=== PATIENT | male | born 1970 | race Two or more races ===

== ENCOUNTER 2020-03-20 14:44 | Inpatient (IN) | payer MEDICAID, OTHER ==
[~2020-03-20] VITALS: Ht 170.2 cm; Wt 80.7 kg
[2020-03-20] MEDS ORDERED: SODIUM CHLORIDE 0.9% 1,000 ML IV ONE (16:00)
[2020-03-20 16:21] LABS: Urine Bacteria NONE SEEN /hpf (None Seen); Urine Blood Negative /uL (Negative); Urine Mucus FEW (None Seen); Urine Specific Gravity 1.026 (1.001-1.035); Urine WBC 2 /hpf (0 - 3)
[2020-03-20 16:29] LABS: Albumin 3.8 g/dL (3.4-5.0); Calcium 8.7 mg/dL (8.5-10.1); Potassium 3.3 mmol/L (3.5-5.1)
[2020-03-20 16:30] LABS: Amphetamine Screen, Urine POSITIVE (NEGATIVE); Barbiturate Scree,Urine NEGATIVE (NEGATIVE); Benzodiazephine Screen, Urine NEGATIVE (NEGATIVE); Cannabinoid Screen, Urine POSITIVE (NEGATIVE); Cocaine Screen, Urine NEGATIVE (NEGATIVE); Opiate Scree,Urine NEGATIVE (NEGATIVE); Phencyclidine Screen, Urine NEGATIVE (NEGATIVE)
[2020-03-20 16:31] LABS: BUN/Creatinine Ratio 19.8
[2020-03-20 16:33] LABS: Bilirubin, Total 0.5 mg/dL (0.2-1.0); Total Protein 7.3 g/dL (6.4-8.2)
[2020-03-20 16:35] LABS: Amylase 45 U/L (25-115); Lipase 88 U/L (73-393)
[2020-03-20] MEDS ORDERED: POTASSIUM CHL 20 Meq TABLET PO ONE (16:45)
[2020-03-20] MEDS ORDERED: PANTOPRAZOLE 40 MG/10 ML VIAL INJ IV ONE (17:00)
[2020-03-20] MEDS ORDERED: cefTRIAXone 1GM/50ML D5W 50 ML IV ONE (17:15)
[2020-03-20] MEDS ORDERED: ONDANSETRON HCL 4 MG/2 ML VIAL IV ONE (17:15)
[2020-03-20] MEDS ORDERED: metroNIDAZOLE 500MG/100ML 100 ML IV ONE (17:15)
[2020-03-20] MEDS ORDERED: MORPHINE SULF INJ 2 MG/ML SYRINGE 1ML IV ONE (17:15)
[2020-03-20 18:06] LABS: Basophils # (auto) 0 10 ^3/uL (0-0.2); Basophils % (auto) 0.1 % (0.0-2.0); Eosinophils # (auto) 0.4 10 ^3/uL (0-0.8); Eosinophils % (auto) 4.6 % (0.0-7.0); Hemoglobin 15.3 g/dL (13.5-17.5); Lymphocytes # (auto) 1.6 10 ^3/uL (0.4-5.4); Mean Corpuscular Hemoglobin 30.8 pg (28.0-32.0); Mean Corpuscular Hgb Conc. 34.1 g/dL (32.0-36.0); Mean Corpuscular Volume 90.3 fL (80.0-100.0); Monocytes # (auto) 0.5 10 ^3/uL (0-1.3); Monocytes % (auto) 6.4 % (0.0-12.0); Neutrophils # (auto) 5.9 10 ^3/uL (1.6-8.6); Neutrophils % (auto) 69.9 % (37.0-80.0); Platelet Count (auto) 198 10^3/uL (140-450); Red Blood Cells 4.98 10^6/uL (4.5-5.90); Red Cell Distribution Width 12.9 % (11.8-14.3); White Blood Cell 8.5 10^3/uL (4.4-10.8)
[2020-03-20 18:20] LABS: INR 0.95 (0.9-1.15); Partial Thromboplastin Time 26.5 sec (23.64-32.05)
[2020-03-20] MEDS ORDERED: PANTOPRAZOLE 40 MG TAB PO ONE (18:30)
[2020-03-20] MEDS ORDERED: POTASSIUM EFFERVESENT TAB 25 MEQ PO ONE (18:30)
[2020-03-20] MEDS ORDERED: MORPHINE SULF INJ 2 MG/ML SYRINGE 1ML IV PRN ×2 (19:00)
[2020-03-20] MEDS ORDERED: PROMETHAZINE HCL 25 MG/ML 1ML IV PRN (19:00)
[2020-03-20 19:50] VITALS: BP 109/68
--- NOTE | 2020-03-20 20:00 | NUR ---
Telemetry admit from ER TORRESJULIETA LINARES admitted to Telemetry unit, no SBAR or report received from ER. Patient oriented to DARINEL DE LOS SANTOS RN primary RN, MST unit, room 280, bed A, and unit policies regarding patient care and visiting hours. Patient weighed by bed scale and encouraged to call if they need something. All questions and concerns addressed, patient verbalized understanding. Note: Patient on room air with even and unlabored respirations, no S/S of distress or SOB. Patient able to ambulate independently, bed in lowest locked position, side rails up x2 and call light within reach. Will continue to monitor Q1hr PRN.
[2020-03-20] MEDS: FAMOTIDINE (10MG/ML) 2ML VL IV SCH (21:14)
[2020-03-20] MEDS ORDERED: ALBUAER3 IN (22:07)
[2020-03-20 22:18] VITALS: BP 109/68
[2020-03-20] MEDS: SODIUM CHLORIDE 0.9% 1,000 ML IV SCH (22:22)
[2020-03-20] MEDS: metroNIDAZOLE 500MG/100ML 100 ML IV SCH (22:22)
[2020-03-21] MEDS: SODIUM CHLORIDE 0.9% 1,000 ML IV SCH ×2 (04:50→20:29)
[2020-03-21 05:00] VITALS: BP 104/70
[2020-03-21] MEDS: metroNIDAZOLE 500MG/100ML 100 ML IV SCH ×3 (06:24→21:55)
[2020-03-21] MEDS: FAMOTIDINE (10MG/ML) 2ML VL IV SCH ×2 (06:49→20:26)
--- NOTE | 2020-03-21 07:30 | NUR ---
Opening Shift Note Assumed care of patient, awake and alert. No S/S of distress/SOB or pain. Instructed on POC and to call for assist PRN, will continue to monitor for changes Q1hr and PRN.
[2020-03-21 09:00] VITALS: BP 140/68
--- NOTE | 2020-03-21 09:40 | NUR ---
Spoke with Dr. Jesus Manuel Grove re surgical consult. COVID test ordered. Dr. Grove states he will schedule surgery after results of test are received.
--- NOTE | 2020-03-21 10:15 | NUR ---
COVID specimen collected and taken to Lab.
[2020-03-21 12:30] VITALS: BP 119/71
--- NOTE | 2020-03-21 13:22 | NUR ---
Dr. Jesus Manuel Grove in to see patient for surgery consult.
--- NOTE | 2020-03-21 14:36 | NUR ---
Page placed to Dr. Jesus Manuel Grove to inform hip of negative COVID test.
[2020-03-21] MEDS ORDERED: SUCCINYLCHOLINE CHLORIDE 20 MG/ML 10ML VIAL IV ONE (16:48)
[2020-03-21] MEDS ORDERED: LIDOCAINE 2% (LOCAL ANESTH.) PF 5ml SDV ONE (16:50)
[2020-03-21] MEDS ORDERED: DexAMETHasone SOD PHOS 10MG/1ML VIAL INJ ONE (16:50)
[2020-03-21] MEDS ORDERED: PROPOFOL 10 MG/ML 20 ML IV ONE (16:50)
[2020-03-21] MEDS ORDERED: ONDANSETRON HCL 4 MG/2 ML VIAL ONE (16:50)
[2020-03-21] MEDS ORDERED: KETOROLAC TROMETH 60MG/2ML VIAL ONE (16:50)
[2020-03-21] MEDS ORDERED: ROCURONIUM 10MG/ML 10ML VIAL IV ONE (16:51)
[2020-03-21] MEDS ORDERED: MIDAZOLAM HCL 1MG/1ML-2 ML VIAL ONE (16:58)
[2020-03-21] MEDS ORDERED: BUPIVACAINE W/ EPINEPH 0.25% INJ 50ML MDV ONE (16:59)
[2020-03-21] MEDS ORDERED: fentaNYL CITRATE 100 MCG/2 ML VL ONE (16:59)
[2020-03-21] MEDS ORDERED: BUPIVACAINE 0.25% INJ 50ML VIAL ONE (16:59)
[2020-03-21] MEDS ORDERED: BUPIVACAINE HCL 50 ML ONE (16:59)
[2020-03-21 17:00] VITALS: BP 128/83
--- NOTE | 2020-03-21 17:15 | NUR ---
Patient taken to pre-op via bed. Consents and surgical checklist in chart. Report given to pre-op RN.
[2020-03-21] MEDS ORDERED: ceFAZolin 1GM/50ML 50 ML IV ONE (17:23)
[2020-03-21] MEDS ORDERED: GLYCOPYRROLATE 0.2 MG/ML 1ML VIAL ONE (17:56)
[2020-03-21] MEDS ORDERED: NEOSTIGMINE 1 MG/ML INJ (10mg/10ML VIAL) ONE (17:56)
[2020-03-21] MEDS ORDERED: HYDROmorphone HCL 2 MG/ML VL ONE (18:40)
[2020-03-21] MEDS: HYDROmorphone HCL 2 MG/ML VL IV PRN ×2 (18:44→19:00)
[2020-03-21] MEDS ORDERED: METOCLOPRAMIDE HCL 5MG/ml INJ 2ml VIAL IV PRN (18:45)
[2020-03-21] MEDS ORDERED: HYDROmorphone HCL 2 MG/ML VL IV PRN (18:45)
[2020-03-21] MEDS ORDERED: LABETALOL HCL 5 MG/ML 4ML SYRINGE IV PRN (18:45)
[2020-03-21] MEDS ORDERED: ePHEDrine SULFATE 50 MG/ML AMP IV PRN (18:45)
[2020-03-21] MEDS ORDERED: NALOXONE HCL 0.4 MG/ML VIAL IV PRN (18:45)
--- NOTE | 2020-03-21 19:30 | NUR ---
Patient back on unit from surgery. Has 3 small midline incisions with abdominal binder on. He currently is on 2L C for comfort. Was medicated prior to coming up and has no complaints of pain currently. Will continue to monitor.
[2020-03-21] MEDS: cefTRIAXone 1GM/50ML D5W 50 ML IV SCH (19:49)
[2020-03-21 22:39] VITALS: BP 100/66
[2020-03-22] MEDS: SODIUM CHLORIDE 0.9% 1,000 ML IV SCH ×3 (01:00→22:13)
[2020-03-22 05:04] VITALS: BP 110/67
[2020-03-22] MEDS: metroNIDAZOLE 500MG/100ML 100 ML IV SCH ×3 (06:07→22:12)
[2020-03-22 06:11] LABS: Basophils # (auto) 0 10 ^3/uL (0-0.2); Eosinophils # (auto) 0 10 ^3/uL (0-0.8); Hematocrit 43.5 % (41.0-53.0); Hemoglobin 14.8 g/dL (13.5-17.5); Lymphocytes # (auto) 0.3 10 ^3/uL (0.4-5.4); Lymphocytes % (auto) 5.3 % (10.0-50.0); Mean Corpuscular Hemoglobin 30.7 pg (28.0-32.0); Mean Corpuscular Hgb Conc. 34.1 g/dL (32.0-36.0); Mean Corpuscular Volume 89.9 fL (80.0-100.0); Monocytes # (auto) 0 10 ^3/uL (0-1.3); Monocytes % (auto) 0.6 % (0.0-12.0); Neutrophils # (auto) 5.7 10 ^3/uL (1.6-8.6); Neutrophils % (auto) 94.1 % (37.0-80.0); Nucleated Red Blood Cells % 0.2 %; Platelet Count (auto) 183 10^3/uL (140-450); Red Blood Cells 4.83 10^6/uL (4.5-5.90); Red Cell Distribution Width 12.9 % (11.8-14.3); White Blood Cell 6.1 10^3/uL (4.4-10.8)
[2020-03-22 06:28] LABS: Potassium 4.1 mmol/L (3.5-5.1)
[2020-03-22 06:35] LABS: Albumin 3.2 g/dL (3.4-5.0); Bilirubin, Total 0.4 mg/dL (0.2-1.0); Calcium 8.2 mg/dL (8.5-10.1); Total Protein 6.5 g/dL (6.4-8.2)
[2020-03-22] MEDS: FAMOTIDINE (10MG/ML) 2ML VL IV SCH ×2 (06:35→17:41)
--- NOTE | 2020-03-22 07:30 | NUR ---
Opening Shift Note Assumed care of patient, awake and alert. No S/S of distress/SOB or pain. Instructed on POC and to call for assist PRN, will continue to monitor for changes Q1hr and PRN. Patient has three small dressing to abdomen, abdominal binder in place.
[2020-03-22 08:40] VITALS: BP 106/57
[2020-03-22] MEDS: cefTRIAXone 1GM/50ML D5W 50 ML IV SCH (10:08)
[2020-03-22 12:31] VITALS: BP 112/78
--- NOTE | 2020-03-22 15:01 | NUR ---
Dr. Stern in to see patient as hospitalist.
--- NOTE | 2020-03-22 15:13 | NUR ---
Patient ambulates in [facility], wears face mask.
[2020-03-22 16:39] VITALS: BP 119/74
[2020-03-22 22:00] VITALS: BP 118/54
[2020-03-23 05:00] VITALS: BP 119/83
[2020-03-23] MEDS: metroNIDAZOLE 500MG/100ML 100 ML IV SCH ×3 (05:45→22:04)
[2020-03-23 06:42] LABS: Basophils # (auto) 0 10 ^3/uL (0-0.2); Basophils % (auto) 0.3 % (0.0-2.0); Eosinophils # (auto) 0.1 10 ^3/uL (0-0.8); Eosinophils % (auto) 0.7 % (0.0-7.0); Hematocrit 39.8 % (41.0-53.0); Hemoglobin 13.7 g/dL (13.5-17.5); Lymphocytes % (auto) 25.5 % (10.0-50.0); Mean Corpuscular Hemoglobin 31.3 pg (28.0-32.0); Mean Corpuscular Hgb Conc. 34.5 g/dL (32.0-36.0); Mean Corpuscular Volume 90.6 fL (80.0-100.0); Monocytes # (auto) 0.4 10 ^3/uL (0-1.3); Monocytes % (auto) 4.8 % (0.0-12.0); Neutrophils # (auto) 5.5 10 ^3/uL (1.6-8.6); Neutrophils % (auto) 68.7 % (37.0-80.0); Platelet Count (auto) 175 10^3/uL (140-450); Red Blood Cells 4.39 10^6/uL (4.5-5.90); Red Cell Distribution Width 12.8 % (11.8-14.3)
[2020-03-23] MEDS: FAMOTIDINE (10MG/ML) 2ML VL IV SCH ×2 (06:44→18:13)
[2020-03-23 06:57] LABS: Calcium 8.1 mg/dL (8.5-10.1); Potassium 3.6 mmol/L (3.5-5.1)
[2020-03-23 06:59] LABS: BUN/Creatinine Ratio 14.3
[2020-03-23] MEDS: SODIUM CHLORIDE 0.9% 1,000 ML IV SCH ×2 (07:30→17:33)
--- NOTE | 2020-03-23 07:35 | NUR ---
Opening Shift Note Assumed care of patient, awake and alert. No S/S of distress/SOB or pain. Updated on POC and instructed to call for assistance PRN. Bed locked in lowest position, side rails up x2, call light within reach. Will continue to monitor for changes Q1hr and PRN.
[2020-03-23 09:00] VITALS: BP 122/75
[2020-03-23] MEDS: cefTRIAXone 1GM/50ML D5W 50 ML IV SCH (09:17)
[2020-03-23] MEDS ORDERED: LORATADINE 10 MG TAB PO ONE (12:15)
[2020-03-23 13:00] VITALS: BP 120/62
--- NOTE | 2020-03-23 15:34 | NUR ---
Nutrition Assessment Notes Please refer to link for full assessment notes. Est Energy needs: [id number] kcals (20-23 kcal/kgBW) Est Protein needs: 67-84 gms/day (0.8-1.0 gm/kgBW) Will continue to monitor and reassess prn. Addendum: 03/23/20 at [address] Amended: Links added.
[2020-03-23 17:24] VITALS: BP 155/94
[2020-03-23 22:00] VITALS: BP 132/79
[2020-03-23] MEDS: traMADol HCL 50 MG TAB PO PRN (23:52)
[2020-03-24] MEDS: SODIUM CHLORIDE 0.9% 1,000 ML IV SCH ×2 (03:32→12:15)
[2020-03-24 05:00] VITALS: BP 123/73
[2020-03-24 05:42] LABS: Basophils # (auto) 0 10 ^3/uL (0-0.2); Basophils % (auto) 0.2 % (0.0-2.0); Eosinophils # (auto) 0.4 10 ^3/uL (0-0.8); Eosinophils % (auto) 6.9 % (0.0-7.0); Hematocrit 41.7 % (41.0-53.0); Hemoglobin 14.3 g/dL (13.5-17.5); Lymphocytes # (auto) 2.7 10 ^3/uL (0.4-5.4); Lymphocytes % (auto) 42.7 % (10.0-50.0); Mean Corpuscular Hemoglobin 30.8 pg (28.0-32.0); Mean Corpuscular Hgb Conc. 34.2 g/dL (32.0-36.0); Mean Corpuscular Volume 89.9 fL (80.0-100.0); Monocytes # (auto) 0.4 10 ^3/uL (0-1.3); Monocytes % (auto) 6.5 % (0.0-12.0); Neutrophils # (auto) 2.8 10 ^3/uL (1.6-8.6); Neutrophils % (auto) 43.7 % (37.0-80.0); Nucleated Red Blood Cells % 0.1 %; Platelet Count (auto) 190 10^3/uL (140-450); Red Blood Cells 4.64 10^6/uL (4.5-5.90); Red Cell Distribution Width 12.9 % (11.8-14.3); White Blood Cell 6.4 10^3/uL (4.4-10.8)
[2020-03-24 05:51] LABS: Calcium 8.4 mg/dL (8.5-10.1); Potassium 3.9 mmol/L (3.5-5.1)
[2020-03-24 05:53] LABS: BUN/Creatinine Ratio 12.5
[2020-03-24] MEDS: metroNIDAZOLE 500MG/100ML 100 ML IV SCH ×3 (06:12→21:55)
[2020-03-24] MEDS: FAMOTIDINE (10MG/ML) 2ML VL IV SCH ×2 (06:13→17:57)
--- NOTE | 2020-03-24 07:30 | NUR ---
Opening Shift Note Assumed care of patient, awake and alert. No S/S of distress/SOB or pain. Updated on POC and instructed to call for assistance PRN. Bed locked in lowest position, side rails up x2, call light within reach. Safety precautions in place. Will continue to monitor for changes Q1hr and PRN.
[2020-03-24 08:47] VITALS: BP 126/81
[2020-03-24] MEDS: LORATADINE 10 MG TAB PO SCH (09:55)
[2020-03-24] MEDS: cefTRIAXone 1GM/50ML D5W 50 ML IV SCH (09:55)
[2020-03-24 12:30] VITALS: BP 123/80
[2020-03-24 13:56] VITALS: BP 123/80
--- NOTE | 2020-03-24 16:36 | NUR ---
PATIENT WENT FOR A WALK AND BECAME WEAK AND SHORT OF BREATH PATIENT WAS ESCORTED BACK TO BED VIA WHEELCHAIR. CONNECTED TO 2L O2 VIA NC. NO S/S OF DISTRESS. VITALS STABLE AT THIS TIME, BP 130/80, HR78, RR20, O2 SAT 99%. PATIENT WAS INSTRUCTED TO STAY IN BED AND CALL FOR ASSISTANCE NEEDED, PATIENT VERBALIZED UNDERSTANDING. MD GREENBERG UPDATED, PER MD HOLD DISCHARGE AT THIS TIME. WILL CONTINUE TO MONITOR.
[2020-03-24] MEDS ORDERED: FUROSEMIDE 40 MG/4 ML VIAL IV ONE (17:45)
[2020-03-24 22:00] VITALS: BP 138/73
[2020-03-25 05:00] VITALS: BP 123/77
[2020-03-25] MEDS: metroNIDAZOLE 500MG/100ML 100 ML IV SCH (06:00)
[2020-03-25] MEDS: FAMOTIDINE (10MG/ML) 2ML VL IV SCH (06:49)
--- NOTE | 2020-03-25 07:45 | NUR ---
OPENING SHIFT NOTES RECEIVED PATIENT LYING IN BED AAOX4, PLEASANT AND COOPERATIVE. C/O ABDOMINAL PAIN AND WILL BE MEDICATED PER PRN ORDER. SHIFT ASSESSMENT DONE AND CHARTED. WILL CONTINUE TO MONITOR PATIENT.
[2020-03-25] MEDS: traMADol HCL 50 MG TAB PO PRN (07:59)
[2020-03-25 09:00] VITALS: BP 128/75
[2020-03-25] MEDS: cefTRIAXone 1GM/50ML D5W 50 ML IV SCH (09:00)
[2020-03-25] MEDS: LORATADINE 10 MG TAB PO SCH (09:13)
--- NOTE | 2020-03-25 10:35 | NUR ---
Discharge instructions given as ordered. Encourage to follow up with PMD as instructed. All questions and concerns addressed. Patient verbalized understanding. Medication reconciliation form completed and copy given to patient. Patient taken to vehicle via wheelchair with all personal belongings, accompanied by staff and family member. No distress noted at time of departure.
== END 2020-03-25 10:35 | disposition home or self-care (01) | DRG 233 ==
LOC: ER 14:44 → OVERFLOW 14:45 → WEST WING 19:50
PROVIDERS: ADMIT Internal Medicine; ATTEND Internal Medicine Nephrology
PROC: 0DTJ4ZZ Resection of Appendix, Percutaneous Endoscopic Approach (ICD-10-PCS; principal; 2020-03-21 17:33)
DX: K35.30 Acute appendicitis with localized peritonitis, without perforation or gangrene (principal); J45.909 Unspecified asthma, uncomplicated; E87.6 Hypokalemia; F10.10 Alcohol abuse, uncomplicated; Z20.828 Contact with and (suspected) exposure to other viral communicable diseases; Y90.9 Presence of alcohol in blood, level not specified; F17.210 Nicotine dependence, cigarettes, uncomplicated; Z87.11 Personal history of peptic ulcer disease; Z79.899 Other long term (current) drug therapy; F15.10 Other stimulant abuse, uncomplicated; F12.10 Cannabis abuse, uncomplicated
CPT/HCPCS: 36415; 71045; 74176; 76705; 80048; 80053; 80307; 81001; 82150; 83605; 83690; 84484; 85025; 85610; 85730; 86850; 86900; 86901; C9113; G0378; J0330; J0690; J0696; J1100; J1885; J2001; J2250; J2405; J2704; J3490

== ENCOUNTER 2020-08-03 21:38 | Emergency (ER) | payer MEDICAID ==
[~2020-08-03] VITALS: Ht 170.2 cm; Wt 79.4 kg
[~2020-08-03 21:38] MED LIST: ALBUAER3 IN
[2020-08-03] MEDS ORDERED: IPRATROPIUM BROM 0.5 MG/2.5ML INH SOL NEB ONE (21:45)
[2020-08-03] MEDS ORDERED: ALBUTEROL SULF 2.5 MG/0.5ML(0.5%) NEB SOLN NEB ONE (21:45)
[2020-08-03] MEDS ORDERED: DexAMETHasone SOD PHOS 10MG/1ML VIAL INJ IM ONE ×2 (22:15→22:30)
[2020-08-03 23:03] LABS: Basophils # (auto) 0 10 ^3/uL (0-0.2); Basophils % (auto) 0.8 % (0.0-2.0); Eosinophils # (auto) 0.2 10 ^3/uL (0-0.8); Eosinophils % (auto) 2.6 % (0.0-7.0); Hematocrit 41.8 % (41.0-53.0); Hemoglobin 14.2 g/dL (13.5-17.5); Lymphocytes # (auto) 0.9 10 ^3/uL (0.4-5.4); Mean Corpuscular Hemoglobin 30.5 pg (28.0-32.0); Mean Corpuscular Volume 89.8 fL (80.0-100.0); Monocytes # (auto) 0.6 10 ^3/uL (0-1.3); Monocytes % (auto) 9.3 % (0.0-12.0); Neutrophils # (auto) 4.5 10 ^3/uL (1.6-8.6); Neutrophils % (auto) 73.3 % (37.0-80.0); Platelet Count (auto) 177 10^3/uL (140-450); Red Blood Cells 4.66 10^6/uL (4.5-5.90); Red Cell Distribution Width 12.4 % (11.8-14.3); White Blood Cell 6.1 10^3/uL (4.4-10.8)
[2020-08-03 23:35] LABS: Albumin 3.7 g/dL (3.4-5.0); Anion Gap 8 (5-15); Blood Urea Nitrogen 14 mg/dL (7-18); Calcium 8.2 mg/dL (8.5-10.1); Carbon Dioxide 24 mmol/L (21-32); Chloride 106 mmol/L (98-107); Glucose 145 mg/dL (74-106); Magnesium 1.9 mg/dL (1.6-2.6); Potassium 3.1 mmol/L (3.5-5.1); Sodium 138 mmol/L (136-145)
[2020-08-03 23:37] LABS: BUN/Creatinine Ratio 16.5; GFR African American 123 mL/min; GFR Non-African American 101 mL/min
[2020-08-03 23:53] LABS: Alanine Aminotransferase 25 U/L (16-61); Alkaline Phosphatase 101 U/L (45-117); Aspartate Aminotransferase 13 U/L (15-37); Bilirubin, Total 0.3 mg/dL (0.2-1.0); Total Protein 7.1 g/dL (6.4-8.2)
[2020-08-04 04:00] VITALS: BP 138/80
== END 2020-08-04 11:23 | disposition home or self-care (01) ==
LOC: ER 21:40
DX: J45.41 Moderate persistent asthma with (acute) exacerbation (principal); F17.210 Nicotine dependence, cigarettes, uncomplicated
CPT/HCPCS: 36415; 80053; 83735; 84484; 85025; 93005; 96372; 99284; J1100; J7644

== ENCOUNTER 2021-09-28 11:11 | Emergency (ER) | payer MEDICAID ==
[~2021-09-28] VITALS: Ht 177.8 cm; Wt 81.6 kg
[2021-09-28 12:49] LABS: Basophils # (auto) 0 10 ^3/uL (0-0.2); Basophils % (auto) 0.2 % (0.0-2.0); Eosinophils # (auto) 0.1 10 ^3/uL (0-0.8); Eosinophils % (auto) 1.9 % (0.0-7.0); Hematocrit 44.3 % (41.0-53.0); Hemoglobin 15.2 g/dL (13.5-17.5); Lymphocytes # (auto) 0.5 10 ^3/uL (0.4-5.4); Lymphocytes % (auto) 8.5 % (10.0-50.0); Mean Corpuscular Hemoglobin 30.7 pg (28.0-32.0); Mean Corpuscular Hgb Conc. 34.2 g/dL (32.0-36.0); Mean Corpuscular Volume 89.7 fL (80.0-100.0); Monocytes # (auto) 0.3 10 ^3/uL (0-1.3); Monocytes % (auto) 5.2 % (0.0-12.0); Neutrophils # (auto) 5.3 10 ^3/uL (1.6-8.6); Neutrophils % (auto) 84.2 % (37.0-80.0); Red Blood Cells 4.94 10^6/uL (4.5-5.90); Red Cell Distribution Width 12.3 % (11.8-14.3); White Blood Cell 6.3 10^3/uL (4.4-10.8)
[2021-09-28 13:05] LABS: INR 0.98 (0.9-1.15); Partial Thromboplastin Time 26.5 sec (23.6-33.0)
[2021-09-28 13:10] LABS: Albumin 3.5 g/dL (3.4-5.0); BUN/Creatinine Ratio 21.3; Calcium 8.5 mg/dL (8.5-10.1); Potassium 3.8 mmol/L (3.5-5.1)
[2021-09-28 13:29] LABS: Bilirubin, Total 0.3 mg/dL (0.2-1.0)
[2021-09-28 14:05] LABS: Urine Bacteria FEW /hpf (None Seen); Urine Blood Negative /uL (Negative); Urine Mucus FEW (None Seen); Urine Specific Gravity 1.038 (1.001-1.035); Urine WBC 1 /hpf (0 - 3)
[2021-09-28 14:27] LABS: Alcohol, Urine < 3.0 mg/dL (0-10); Amphetamine Screen, Urine POSITIVE (NEGATIVE); Barbiturate Scree,Urine NEGATIVE (NEGATIVE); Benzodiazephine Screen, Urine NEGATIVE (NEGATIVE); Cannabinoid Screen, Urine NEGATIVE (NEGATIVE); Cocaine Screen, Urine NEGATIVE (NEGATIVE); Opiate Scree,Urine NEGATIVE (NEGATIVE); Phencyclidine Screen, Urine NEGATIVE (NEGATIVE)
[2021-09-28 19:25] VITALS: BP 128/78
[2021-09-28] MEDS ORDERED: ALBUAER3 IN (19:25)
== END 2021-09-28 19:37 | disposition home or self-care (01) ==
LOC: EDBD 11:11 → ER 11:11
DX: F15.10 Other stimulant abuse, uncomplicated (principal); R06.02 Shortness of breath; J45.909 Unspecified asthma, uncomplicated; F17.210 Nicotine dependence, cigarettes, uncomplicated; Z20.822 Contact with and (suspected) exposure to COVID-19
CPT/HCPCS: 36415; 71045; 80053; 80307; 81001; 83880; 84484; 85025; 85610; 85730; 87426; 93005

== ENCOUNTER 2022-09-22 16:38 | Inpatient (IN) | payer MEDICAID, OTHER ==
[~2022-09-22] VITALS: Ht 167.6 cm; Wt 90.2 kg
[2022-09-22] MEDS ORDERED: IPRATROPIUM BROM 0.5 MG/2.5ML INH SOL ONE (16:49)
[2022-09-22] MEDS ORDERED: ALBUTEROL MEDNEB 2.5 mg/3ml NEB ONE ×2 (16:49→21:24)
[2022-09-22] MEDS ORDERED: MAGNESIUM SULFATE 1GM/100ML 200 ML IV ONE (16:51)
[2022-09-22] MEDS ORDERED: ALBUTEROL SULF 2.5 MG/0.5ML(0.5%) NEB SOLN NEB ONE (17:00)
[2022-09-22] MEDS ORDERED: methylPREDNISolone SOD SUCC 125 MG/2 ML VL IV ONE (17:00)
[2022-09-22] MEDS ORDERED: IPRATROPIUM BROM 0.5 MG/2.5ML INH SOL NEB ONE (17:00)
[2022-09-22] MEDS: MAGNESIUM SULFATE 1GM/100ML 100 ML IV SCH ×2 (17:10→18:00)
[2022-09-22 17:23] LABS: Basophils # (auto) 0.1 10 ^3/uL (0-0.2); Basophils % (auto) 0.6 % (0.0-2.0); Eosinophils # (auto) 0.3 10 ^3/uL (0-0.8); Eosinophils % (auto) 2.3 % (0.0-7.0); Hemoglobin 13.6 g/dL (13.5-17.5); Lymphocytes # (auto) 4.3 10 ^3/uL (0.4-5.4); Mean Corpuscular Hemoglobin 30.1 pg (28.0-32.0); Mean Corpuscular Hgb Conc. 32.3 g/dL (32.0-36.0); Mean Corpuscular Volume 93.3 fL (80.0-100.0); Monocytes # (auto) 0.7 10 ^3/uL (0-1.3); Monocytes % (auto) 5.6 % (0.0-12.0); Neutrophils # (auto) 6.4 10 ^3/uL (1.6-8.6); Neutrophils % (auto) 54.5 % (37.0-80.0); Nucleated Red Blood Cells % 0.3 %; Red Blood Cells 4.51 10^6/uL (4.5-5.90); Red Cell Distribution Width 12.9 % (11.8-14.3); White Blood Cell 11.7 10^3/uL (4.4-10.8)
[2022-09-22] MEDS ORDERED: DOCUSATE SOD 100 MG CAP PO PRN (18:30)
[2022-09-22] MEDS ORDERED: ONDANSETRON HCL 4 MG/2 ML VIAL IV PRN (18:30)
[2022-09-22] MEDS: SODIUM CHLORIDE 0.9% 1,000 ML IV SCH (18:53)
[2022-09-22 19:04] VITALS: BP 106/50
[2022-09-22] MEDS: MORPHINE SULFATE INJ 2 MG/ml SYRG IV PRN (19:37)
[2022-09-22 19:44] LABS: Sodium 144 mmol/L (136-145)
[2022-09-22 19:45] LABS: Alanine Aminotransferase 22 U/L (16-61); Albumin 3.2 g/dL (3.4-5.0); Alkaline Phosphatase 123 U/L (45-117); Anion Gap 17 (5-15); Aspartate Aminotransferase 19 U/L (15-37); BUN/Creatinine Ratio 17.9; Bilirubin, Total 0.1 mg/dL (0.2-1.0); Blood Urea Nitrogen 20 mg/dL (7-18); Calcium 8.5 mg/dL (8.5-10.1); Carbon Dioxide 17 mmol/L (21-32); Chloride 110 mmol/L (98-107); GFR African American 89 mL/min; GFR Non-African American 73 mL/min; Glucose 184 mg/dL (74-106); Total Protein 7.8 g/dL (6.4-8.2)
[2022-09-22] MEDS: IPRATROPIUM BROM 0.5 MG/2.5ML INH SOL NEB SCH (21:28)
[2022-09-22] MEDS: ALBUTEROL SULF 2.5 MG/0.5ML(0.5%) NEB SOLN NEB SCH (21:28)
[2022-09-22] MEDS: methylPREDNISolone SOD SUCC 125 MG/2 ML VL IV SCH (22:11)
[2022-09-23] MEDS ORDERED: ALBUTEROL MEDNEB 2.5 mg/3ml NEB ONE ×6 (01:56→21:51)
[2022-09-23] MEDS: IPRATROPIUM BROM 0.5 MG/2.5ML INH SOL NEB SCH ×6 (01:57→22:11)
[2022-09-23] MEDS: ALBUTEROL SULF 2.5 MG/0.5ML(0.5%) NEB SOLN NEB SCH ×6 (01:57→22:11)
[2022-09-23] MEDS: SODIUM CHLORIDE 0.9% 1,000 ML IV SCH ×3 (02:50→19:44)
[2022-09-23] MEDS: methylPREDNISolone SOD SUCC 125 MG/2 ML VL IV SCH ×3 (06:18→22:39)
[2022-09-23 08:59] LABS: Basophils # (auto) 0 10 ^3/uL (0-0.2); Basophils % (auto) 0.2 % (0.0-2.0); Eosinophils # (auto) 0 10 ^3/uL (0-0.8); Hematocrit 37.8 % (41.0-53.0); Hemoglobin 12.1 g/dL (13.5-17.5); Lymphocytes # (auto) 0.8 10 ^3/uL (0.4-5.4); Mean Corpuscular Hemoglobin 29.4 pg (28.0-32.0); Mean Corpuscular Volume 91.8 fL (80.0-100.0); Monocytes # (auto) 0.1 10 ^3/uL (0-1.3); Neutrophils # (auto) 11.6 10 ^3/uL (1.6-8.6); Neutrophils % (auto) 92.8 % (37.0-80.0); Nucleated Red Blood Cells % 0.1 %; Red Blood Cells 4.11 10^6/uL (4.5-5.90); White Blood Cell 12.5 10^3/uL (4.4-10.8)
[2022-09-23 11:14] LABS: Albumin 2.9 g/dL (3.4-5.0); Anion Gap 7 (5-15); Aspartate Aminotransferase 13 U/L (15-37); BUN/Creatinine Ratio 25.3; Blood Urea Nitrogen 22 mg/dL (7-18); Calcium 8.3 mg/dL (8.5-10.1); Carbon Dioxide 22 mmol/L (21-32); Chloride 113 mmol/L (98-107); GFR African American 119 mL/min; GFR Non-African American 98 mL/min; Glucose 131 mg/dL (74-106); Potassium 4.4 mmol/L (3.5-5.1); Sodium 142 mmol/L (136-145)
[2022-09-23 11:18] LABS: Alanine Aminotransferase 18 U/L (16-61); Alkaline Phosphatase 89 U/L (45-117); Bilirubin, Total 0.2 mg/dL (0.2-1.0); Total Protein 7.1 g/dL (6.4-8.2)
[2022-09-23] MEDS: ENOXAPARIN SOD 40 MG/0.4 ML SYRINGE SC SCH (11:35)
[2022-09-23] MEDS: PANTOPRAZOLE 40 MG/10 ML VIAL INJ IV SCH (11:35)
[2022-09-23 18:30] VITALS: BP 114/55
[2022-09-23 19:45] VITALS: BP_SYST 114; BP_SYST 116; BP_DIAS 55; BP_DIAS 56
[2022-09-23 22:00] VITALS: BP 116/56
[2022-09-24] MEDS ORDERED: ALBUTEROL MEDNEB 2.5 mg/3ml NEB ONE ×5 (01:41→21:39)
[2022-09-24] MEDS: ALBUTEROL SULF 2.5 MG/0.5ML(0.5%) NEB SOLN NEB SCH ×6 (02:05→22:02)
[2022-09-24] MEDS: IPRATROPIUM BROM 0.5 MG/2.5ML INH SOL NEB SCH ×6 (02:05→22:02)
[2022-09-24] MEDS: SODIUM CHLORIDE 0.9% 1,000 ML IV SCH (03:50)
[2022-09-24 05:00] VITALS: BP 150/60
[2022-09-24] MEDS: methylPREDNISolone SOD SUCC 125 MG/2 ML VL IV SCH ×3 (05:26→22:02)
[2022-09-24 06:17] LABS: Basophils # (auto) 0 10 ^3/uL (0-0.2); Eosinophils # (auto) 0 10 ^3/uL (0-0.8); Hematocrit 36.4 % (41.0-53.0); Hemoglobin 11.8 g/dL (13.5-17.5); Lymphocytes # (auto) 0.7 10 ^3/uL (0.4-5.4); Lymphocytes % (auto) 3.7 % (10.0-50.0); Mean Corpuscular Hemoglobin 29.6 pg (28.0-32.0); Mean Corpuscular Hgb Conc. 32.5 g/dL (32.0-36.0); Mean Corpuscular Volume 91.2 fL (80.0-100.0); Monocytes # (auto) 0.3 10 ^3/uL (0-1.3); Monocytes % (auto) 1.4 % (0.0-12.0); Neutrophils % (auto) 94.9 % (37.0-80.0); Nucleated Red Blood Cells % 0.2 %; Red Blood Cells 3.99 10^6/uL (4.5-5.90); Red Cell Distribution Width 12.7 % (11.8-14.3)
[2022-09-24 06:36] LABS: BUN/Creatinine Ratio 27.7; Calcium 8.3 mg/dL (8.5-10.1); Potassium 4.4 mmol/L (3.5-5.1)
[2022-09-24 09:15] VITALS: BP 131/58
[2022-09-24] MEDS ORDERED: SULFAMETHOX W/TRIMETH(800/160MG) DS TAB PO ONE (09:45)
[2022-09-24] MEDS: ENOXAPARIN SOD 40 MG/0.4 ML SYRINGE SC SCH (09:55)
[2022-09-24] MEDS: PANTOPRAZOLE 40 MG/10 ML VIAL INJ IV SCH (10:00)
[2022-09-24] MEDS: SULFAMETHOX W/TRIMETH(800/160MG) DS TAB PO SCH ×2 (11:20→22:02)
[2022-09-24 13:06] VITALS: BP 135/66
[2022-09-24 17:13] VITALS: BP 128/66
[2022-09-24] MEDS: ACETAMINOPHEN 500 MG TAB PO PRN (17:34)
[2022-09-24 20:00] VITALS: BP 128/66
[2022-09-24 22:00] VITALS: BP 132/66
[2022-09-24] MEDS: MORPHINE SULFATE INJ 2 MG/ml SYRG IV PRN (23:20)
[2022-09-25] MEDS ORDERED: ALBUTEROL MEDNEB 2.5 mg/3ml NEB ONE ×4 (01:54→14:08)
[2022-09-25] MEDS: IPRATROPIUM BROM 0.5 MG/2.5ML INH SOL NEB SCH ×3 (02:17→10:18)
[2022-09-25] MEDS: ALBUTEROL SULF 2.5 MG/0.5ML(0.5%) NEB SOLN NEB SCH ×3 (02:17→10:18)
[2022-09-25 05:00] VITALS: BP 139/73
[2022-09-25 05:03] LABS: Basophils # (auto) 0 10 ^3/uL (0-0.2); Basophils % (auto) 0.2 % (0.0-2.0); Eosinophils # (auto) 0 10 ^3/uL (0-0.8); Hematocrit 37.2 % (41.0-53.0); Hemoglobin 12.3 g/dL (13.5-17.5); Lymphocytes # (auto) 0.8 10 ^3/uL (0.4-5.4); Lymphocytes % (auto) 4.8 % (10.0-50.0); Mean Corpuscular Hemoglobin 29.6 pg (28.0-32.0); Mean Corpuscular Volume 89.6 fL (80.0-100.0); Monocytes # (auto) 0.3 10 ^3/uL (0-1.3); Monocytes % (auto) 1.5 % (0.0-12.0); Neutrophils # (auto) 16.2 10 ^3/uL (1.6-8.6); Neutrophils % (auto) 93.5 % (37.0-80.0); Nucleated Red Blood Cells % 0.1 %; Red Blood Cells 4.15 10^6/uL (4.5-5.90); Red Cell Distribution Width 12.9 % (11.8-14.3); White Blood Cell 17.3 10^3/uL (4.4-10.8)
[2022-09-25 05:26] LABS: Calcium 8.7 mg/dL (8.5-10.1)
[2022-09-25 05:28] LABS: BUN/Creatinine Ratio 30.1
[2022-09-25] MEDS: methylPREDNISolone SOD SUCC 125 MG/2 ML VL IV SCH (05:37)
[2022-09-25 09:00] VITALS: BP 135/76
[2022-09-25] MEDS ORDERED: PRED20TA2 PO (09:10)
[2022-09-25] MEDS ORDERED: ALB5IS NEB (09:10)
[2022-09-25] MEDS: SULFAMETHOX W/TRIMETH(800/160MG) DS TAB PO SCH (09:45)
[2022-09-25] MEDS: ENOXAPARIN SOD 40 MG/0.4 ML SYRINGE SC SCH (09:46)
[2022-09-25] MEDS ORDERED: ALBUAER3 IN (12:06)
[2022-09-25 12:43] VITALS: BP 139/83
[2022-09-25] MEDS: ACETAMINOPHEN 500 MG TAB PO PRN (13:48)
== END 2022-09-25 14:25 | disposition home or self-care (01) | DRG 140 ==
LOC: ER 16:38 → EDBD 16:38 → TELE 18:34 → TELE-E-ADS 09-23 18:38 → TELE-CENTR 09-23 20:25
PROVIDERS: ADMIT Nurse Practitioner Family; ATTEND Internal Medicine Pulmonary Disease
DX: J44.1 Chronic obstructive pulmonary disease with (acute) exacerbation (principal); J96.01 Acute respiratory failure with hypoxia; J45.901 Unspecified asthma with (acute) exacerbation; N45.4 Abscess of epididymis or testis; D72.829 Elevated white blood cell count, unspecified; F17.210 Nicotine dependence, cigarettes, uncomplicated; Z20.822 Contact with and (suspected) exposure to COVID-19; E66.01 Morbid (severe) obesity due to excess calories; Z80.0 Family history of malignant neoplasm of digestive organs; Z86.16 Personal history of COVID-19; Z87.11 Personal history of peptic ulcer disease; Z71.6 Tobacco abuse counseling; Z68.32 Body mass index [BMI] 32.0-32.9, adult
CPT/HCPCS: 36415; 36600; 71045; 80048; 80053; 82805; 84484; 85025; 87426; 87804; 93005; 94640; 96365; 96375; 99291; C9113; G0378; J2405